=== PATIENT | female | born 1995 | race Caucasian/White ===

== ENCOUNTER 2023-09-29 14:23 | Emergency (ER) | payer BC ==
--- OUTSIDE RECORDS SUMMARY | 2023-09-29 14:27 | XMS REPORT | Continuity of Care Document ---
Author Name Unknown Address [address] [facility] [address] [place] [address] [facility] thconnect Address [address] [facility] [address] [place] [address] Care Team Providers Care Arrt Technologist Name Role Phone PCP, PATIENT DOES NOT HAVE A Primary Care Physic nehemias Unavailable Katelyn Archer Attending Clinician Unavail CELY Rivas Attending Clinician Cely Anguiano Attending Clinician [phone] Unknown, Attending Attending Clinician Unavailab jose Doctor Unassigned, [place] Attending Clinician U Shelley Berger MD Attending Clinician SHELLEY LOPEZ Attending Clinician Unavailable Only, Joseluis Db Test Attending Clinician Unavailabl e Pcp, Patient Does Not Have A Attending Clinician Provider, [facility] Attending Clinician Un available Sylwia Cedeño Attending Clinician [phone] SYLWIA GANDHI Attending Clinician Unavailable Lab, Adc Fam Pob I Attending Clinician Unavailab jose UNKNOWN, ATTENDING Attending Clinician Unavailab DALY Wilde Attending Clinician UnavailDaly Garcia Attending Clinician Payers Payer Name Policy Type Policy Number Effective Date Expirati on Date Source [facility] - OUT OF STATE [id number] 2017 00:00:00 Problems Condition Name Condition Details Condition Category Status Onset Date Resolution Date Last Treatment Date Treating Clinician Comments Source No known active problems No known active problems Disease [facility] Allergies, Adverse Reactions, Alerts Allergy Name Allergy Type Status Severity Reaction(s) Onset Date Inactive Date Treating Clinician Comments Source NO KNOWN ALLERGIE S Drug Class Active [facility] Social History Social Habit Start Date Stop Date Quantity Comments Source Exposure to SARS-CoV-2 (event) Not sure [facility] Alcohol intake 2022-04-26 00:00:00 2022-04-26 00:00:00 Lifetime non-drinker (finding) [facility] Tobacco use and exposure 2018-01-06 00:00:00 2018-01-06 00:00:00 Smokeless tobacco non-user [facility] Sex Assigned At 1995 00:00:00 1995 00:00:00 [facility] Smoking Status Start Date Stop Date Source Never smoked tobacco [facility] Medications Ordered Medication Name Filled Medication Name Start Date Stop Date Current Medication? Ordering Clinician Indication Dosage Frequency Signature (SIG) Comments Components Source predniSONE 20 mg tablet 2021-06 00:00: 00 Yes [id number] Take 2 tab daily x 7 days then 1 tab daily x 7 days taper [facility] LORYNA, 28, 3-0.02 mg per tablet 2021-06 00:00: 00 Yes TAKE 1 TABLET BY MOUTH EVERY DAY ORALLY ONCE A DAY 28 DAYS [facility] phentermine 37.5 mg tablet 2021-06 00:00: 00 Yes TAKE 1 TABLET BY MOUTH EVERY DAY FOR 30 DAYS [facility] lamoTRIgine 100 mg tablet 2021-06 00:00: 00 Yes 100mg Take 100 mg by mouth in the morning. [facility] azelastine 137 mcg (0.1 %) nasal spray 2020-06 00:00: 00 Yes [id number] 1{spray } Use 1 Altair in each nostril 2 (two) times daily. Use in each nostril as directed [facility] fluticasone propionate 50 mcg/actuati on nasal spray 2020-06 00:00: 00 Yes [id number] 1{spray } Use 1 Altair in each nostril daily. [facility] bromphenira mine-pseudo ephedrine-D M (BROMFED DM) 2-30-10 mg/5 mL syrup 2020-06 00:00: 00 Yes [id number] 5mL Take 5 mL by mouth 4 (four) times daily as needed for Congestion /Allergies . [facility] amoxicillin -clavulanat e 875-125 mg per tablet 11-03 00:00: 00 11-11 04:59 :00 No [id number] 1{tbl} Take 1 tablet by mouth 2 (two) times daily for 7 days. [facility] OMEPRAZOLE ORAL 11-02 21:02: 40 Yes Take by mouth. [facility] thyroid,por k (ARMOUR THYROID ORAL) 11-02 21:02: 40 Yes Take by mouth. [facility] OMEPRAZOLE ORAL 11-02 16:02: 40 Yes Take by mouth. [facility] methylPREDN ISolone (MEDROL, JENNIFER,) 4 mg tablets 2019-06 00:00: 00 Yes [id number] Take by mouth SEE-INSTRU CTIONS. follow package directions [facility] promethazin e-codeine 6.25-10 mg/5 mL syrup 2019-06 00:00: 00 06-08 05:59 :00 No [id number] 10mL Take 10 mL by mouth every 8 (eight) hours as needed for Cough for up to 7 days. Indication s: acute pain [facility] OMEPRAZOLE ORAL 01-07 00:55: 00 Yes Take by mouth. [facility] thyroid,por k (ARMOUR THYROID ORAL) 01-07 00:55: 00 Yes Take by mouth. [facility] cephALEXin 500 mg tablet 01-06 00:00: 00 Yes [id number] 1 tab 2x/d [facility] Vital Signs Vital Name Observation Time Observation Value Comments S ource Systolic blood pressure 2022-04-26 23:56:00 138 mm[Hg] [facility] Diastolic blood pressure 2022-04-26 23:56:00 90 mm[Hg] [facility] Heart rate 2022-04-26 23:56:00 89 /min [facility] Body temperature 2022-04-26 23:56:00 36.94 Nydia [facility] Respiratory rate 2022-04-26 23:56:00 18 /min [facility] Body height 2022-04-26 23:56:00 182.9 cm [facility] Body weight 2022-04-26 23:56:00 103.329 kg [facility] BMI 2022-04-26 23:56:00 30.90 kg/m2 [facility] Oxygen saturation in Arterial blood by Pulse oximetry 2022-04-26 23:56:00 99 /min [facility] Systolic blood pressure 2021-03-31 23:56:00 117 mm[Hg] [facility] Diastolic blood pressure 2021-03-31 23:56:00 83 mm[Hg] [facility] Heart rate 2021-03-31 23:56:00 118 /min [facility] Body temperature 2021-03-31 23:56:00 37.44 Nydia [facility] Respiratory rate 2021-03-31 23:56:00 18 /min [facility] Body weight 2021-03-31 23:56:00 100.245 kg [facility] BMI 2021-03-31 23:56:00 30.82 kg/m2 [facility] Oxygen saturation in Arterial blood by Pulse oximetry 2021-03-31 23:56:00 98 /min [facility] Systolic blood pressure 2020-11-03 21:21:00 129 mm[Hg] [facility] Diastolic blood pressure 2020-11-03 21:21:00 87 mm[Hg] [facility] Body height 2020-11-03 21:19:00 180.3 cm [facility] Body weight 2020-11-03 21:19:00 97.523 kg [facility] BMI 2020-11-03 21:19:00 29.99 kg/m2 [facility] Oxygen saturation in Arterial blood by Pulse oximetry 2020-11-03 21:19:00 98 /min [facility] Heart rate 2020-11-03 21:19:00 97 /min Un[facility] Body temperature 2020-11-03 21:19:00 36.94 Nydia [facility] Respiratory rate 2020-11-03 21:19:00 16 /min [facility] Systolic blood pressure 2020-11-02 21:00:00 130 mm[Hg] [facility] Diastolic blood pressure 2020-11-02 21:00:00 89 mm[Hg] [facility] Heart rate 2020-11-02 21:00:00 92 /min [facility] Body temperature 2020-11-02 21:00:00 37.06 Nydia [facility] Respiratory rate 2020-11-02 21:00:00 18 /min [facility] Body height 2020-11-02 21:00:00 180.3 cm [facility] Body weight 2020-11-02 21:00:00 97.523 kg [facility] BMI 2020-11-02 21:00:00 29.99 kg/m2 [facility] Oxygen saturation in Arterial blood by Pulse oximetry 2020-11-02 21:00:00 100 /min [facility] Systolic blood pressure 2020-05-31 18:03:00 120 mm[Hg] [facility] Diastolic blood pressure 2020-05-31 18:03:00 88 mm[Hg] [facility] Heart rate 2020-05-31 18:02:00 90 /min [facility] Body temperature 2020-05-31 18:02:00 36.5 Nydia [facility] Respiratory rate 2020-05-31 18:02:00 18 /min [facility] Body height 2020-05-31 18:02:00 182.9 cm [facility] Body weight 2020-05-31 18:02:00 99.791 kg [facility] BMI 2020-05-31 18:02:00 29.84 kg/m2 [facility] Oxygen saturation in Arterial blood by Pulse oximetry 2020-05-31 18:02:00 98 /min [facility] Procedures Procedure Date / Time Performed Performing Clinicia n Source ASSIGNMENT OF BENEFITS 2022-04-26 23:37:20 Docto r Unassigned, [place] [facility] POCT GRP A STREP (MOLECULAR) 2021-03-31 23:55:00 JeffreyZuri [facility] COVID-19 (MOLECULAR TESTING NUCLEIC ACID AMPLIFICATION) 2020-11-02 21:01:00 Sylwia Gandhi [facility] CONSENT/REFUSAL FOR DIAGNOSIS AND TREATMENT 2020-11-02 20:52:24 Doctor Unassigned, [place] [facility] ASSIGNMENT OF BENEFITS 2020-11-02 20:52:09 Docto r Unassigned, [place] [facility] Encounters Start Date/Time End Date/Time Encounter Type Admission Type Attending Clinicians Care Facility Care Department Encounter ID Source 2023-09-21 16:22:01 Outpatient Stacymarcell Katelyn [facility] [id number] [facility] [place] 2022-04-26 17:40:00 2022-04-26 18:07:06 Outpatient CELY BECK [facility] [id number] [facility] 2022-04-26 17:40:00 2022-04-26 18:07:06 Urgent Care Cely Waddell Unknown, Attending [facility] [id number] 350.1.13.10 [id number] [id number] [facility] 2022-04-26 00:00:00 2022-04-26 00:00:00 Orders Only Doctor Unassigned, [place] [facility] 1.284.114 350.1.13.10 4.2.7.2.686 [id number] [facility] 2021-04-23 00:00:00 2021-04-23 00:00:00 Refill Shelley Lopez [facility] [id number] 350.1.13.10 4.2.7.2.686 [id number] [facility] 2021-03-31 18:50:20 2021-03-31 19:10:20 Urgent Care John [facility] [place]?Shahrzad dempsey [facility] Building [id number] 350.1.13.10 4.2.7.2.686 [id number] [facility] 2021-03-31 19:00:00 2021-03-31 19:00:00 Outpatient R [facility] [id number] [facility] 2021-03-30 20:45:00 2021-03-30 20:45:00 Outpatient R JOHN SHELLEY [facility] [id number] [facility] 2021-03-30 19:05:37 2021-03-30 19:20:37 Laboratory Only Only, Ang Db Test John [facility] Jose Antonio?Shahrzad dempsey [facility] [id number] [id number] [id number] [id number] [facility] 2020-11-05 00:00:00 2020-11-05 00:00:00 Telephone Pcp, Patient Does Not Have A [facility] 1..840.114 350.1.13.10 4.2.7.2.686 [id number] [facility] 2020-11-03 15:53:11 2020-11-03 16:13:11 Urgent Care Provider, [facility] Oksana [facility] 1..840.114 350.1.13.10 4.2.7.2.686 [id number] [facility] 2020-11-03 16:00:00 2020-11-03 16:00:00 Outpatient R OKSANA SYLWIA [facility] [id number] [facility] 2020-11-02 15:54:08 2020-11-02 16:27:01 Urgent Care Provider, Joseluis Ur[facility] Care Oksana [facility] [id number] 350.1.13.10 4.2.7.2.686 [id number] [facility] 2020-11-02 16:00:00 2020-11-02 16:00:00 Outpatient R OKSANA SYLWIA [facility] [id number] [facility] 2020-11-02 00:00:00 2020-11-02 00:00:00 Orders Only Doctor Unassigned, [place] [facility] [id number] 350.1.13.10 4.2.7.2.686 [id number] [facility] 2020-07-03 18:29:33 2020-07-03 18:49:33 Laboratory Only Lab, Adc Fam Pob I Unknown, Attending [facility] [id number] 350.1.13.10 4.2.7.2.686 [id number] [facility] 2020-07-03 18:40:00 2020-07-03 18:40:00 Outpatient R UNKNOWN, ATTENDING [facility] [id number] [facility] 2020-05-31 11:52:15 2020-05-31 12:33:52 Urgent Care Provider, Joseluis [facility] Oksana [facility] [id number] 350.1.13.10 4.2.7.2.686 [id number] [facility] 2020-05-31 11:40:00 2020-05-31 11:40:00 Outpatient R OKSANA [facility] [id number] [facility] 2020-05-29 19:20:00 2020-05-29 19:20:00 Outpatient R DALY GARRIDO [facility] [id number] [facility] 2020-05-29 18:25:02 2020-05-29 18:45:02 Laboratory Only Lab, Adc Fam Alfonzob Daly Mack [facility] [id number] 350.1.13.10 4.2.7.2.686 [id number] [facility] 2020-05-29 00:00:00 2020-05-29 00:00:00 Letter (Out) Doctor Unassigned, [place] [facility] [id number] 350.1.13.10 4.2.7.2.686 [id number] [facility] Results Test Description Test Time Test Comments Results Result Co mments Source [facility]2020-11-03 10:25:09* Test Item Value Reference Range Interpretation Comme nts SARS-CoV-2 NAAT (test code = 86895-4) Not Detected Not Detected TAYLOR (test code = TAYLOR) [employer] SARS-CoV-2 Assay is a nucleic acid amplification test intended for the qualitative detection of RNA from SARS-CoV-2 from nasopharyngeal (RESOLUTION ANALYST) specimens. ?It is used under Emergency Use Authorization (EUA) by FDA. A positive result is indicative of the presence of SARS-CoV-2 RNA. ?Clinical correlation with patient history and other diagnostic information is necessary to determine patient infection status. A negative (Not Detected) result does not preclude SARS-CoV-2 infection. ?Clinical correlation with patient history and other diagnostic information should be used in patient management decisions. Invalid: Unable to generate a valid test result on this specimen. ?Please submit a new specimen for repeat testing if clinically indicated. Lab Interpretation (test code = 60255-8) Normal [facility]
--- NOTE | 2023-09-29 15:37 | RAD REPORT ---
EXAM DESCRIPTION: US - Transvaginal OB - 09/29/2023 3:20 pm CLINICAL HISTORY: with pelvic pain COMPARISON: None FINDINGS: The uterus measures 7 x 4 x 5 centimeters. A normal appearing gestational sac is present within the endometrium. Within this is a yolk sac and pole with a crown-rump length 2.3 millime ters. Cardiac activity not visualized Left ovary normal in size and echotexture. Right ovary not seen secondary to overlying bowel gas. The right and left adnexa are unremarkable No significant free fluid is seen. IMPRESSION: Single intrauterine with an estimated gestational age 5 weeks 5 days ELIZA 05/26. This may represent a viable in which the heart beat not detected due to the early gestation al age. It is recommended that the patient have a followup endovaginal sonogram in 1 week for re-eval uation
[2023-09-29 15:48] LABS: Absolute Basophils 0.1 K/uL (0-0.5); Absolute Eosinophils 0.2 K/uL (0-0.5); Absolute Lymphocytes (CBC) 2.3 K/uL (0.7-4.9); Absolute Monocytes 0.8 K/uL (0.1-1.3); Absolute Neutrophil 4.3 K/uL (1.8-8.0); Basophils % 0.9 % (0-1.3); Eosinophils % 2.4 % (0-4.4); Hemoglobin 14.2 g/dL (12.0-15.0); Lymphocytes % 29.9 % (15.3-44.8); MCH 31.3 pg (27.0-35.0); MCHC 33.8 g/dL (32.0-36.0); MCV 92.7 fL (80-100); MPV 8.9 fL (7.6-11.3); Monocytes % 10.7 % (3.3-12.3); Neutrophils % 56.1 % (41.7-73.7); Nucleated Red Blood Cells % 0.1 % (0-0); Platelets 259 thou/uL (152-406); RBC Red Blood Cell Count 4.54 M/uL (3.86-4.86); Red Cell Distribution Width 13.1 % (12.1-15.2)
[2023-09-29 15:52] LABS: Specific Gravity 1.017 (1.005-1.030)
[2023-09-29 16:21] LABS: Anion Gap 2.3 mEq/L (5.0-15.0); Potassium 3.3 mEq/L (3.5-5.1)
--- NOTE | 2023-09-29 16:45 | ER ---
Nurse's Notes [facility] Name: Lexi Raymundo Age: 28 yrs Sex: Female : 1995 Arrival Date: 09/29/2023 Time: 14:23 Bed 11 Private MD: Diagnosis: Encounter for supervision of other normal , first trimester Presentation: 09/28 14:36 Chief complaint: Patient states: G1, P0. Abdominal cramping for 4 weeks; around 4 weeks ll1 . No bleeding. LMP 08/23/23. Coronavirus screen: Client denies travel out of the [place] in the last 14 days. At this time, the client does not indicate any symptoms associated with coronavirus-19. Ebola Screen: Patient denies travel to an Ebola-affected area in the 21 days before illness onset. Initial Sepsis Screen: Does the patient meet any 2 criteria? No. Patient's initial sepsis screen is negative. Does the patient have a suspected source of infection? No. Patient's initial sepsis screen is negative. Risk Assessment: Do you want to hurt yourself or someone else? Patient reports no desire to harm self or others. Onset of symptoms was August 29, 2023. 14:36 Method Of Arrival: Ambulatory ll1 14:36 Acuity: RUDY 3 ll1 Triage Assessment: 14:38 General: Appears in no apparent distress. Behavior is calm, cooperative, appropriate ll1 for age. Pain: Complains of pain in pelvis Pain currently is 1 out of 10 on a pain scale. Quality of pain is described as crampy. GI: Reports cramping. : Reports cramping. 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 - Infectious Disease History:: Denies. - Social history:: Smoking status: Patient denies any tobacco usage or history of. Screenin:51 [facility] ED Fall Risk Assessment (Adult) History of falling in the last 3 months, bp including since admission No falls in past 3 months (0 pts). Abuse screen: Denies threats or abuse. Denies injuries from another. Nutritional screening: No deficits noted. Tuberculosis screening: No symptoms or risk factors identified. Assessment: 14:45 General: SEE TRIAGE NOTE. bp 16:51 : No deficits noted. Denies vaginal bleeding. bp 16:53 GI: Bowel sounds present X 4 quads. Abd is soft and non tender. bp Vital Signs: 14:36 BP 153 / 86; Pulse 103; Resp 16; Temp 97.1; Pulse Ox 100% ; Weight 106.59 kg; Height 6 ll1 ft. 0 in. ; Pain 1/10; 16:52 BP 143 / 79; Pulse 91; Resp 16; Pulse Ox 100% ; bp 14:36 Body Mass Index 31.87 (106.59 kg, 182.88 cm) ll1 14:36 Pain Scale: Adult ll1 ED Course: 14:26 Patient arrived in ED. mr 14:31 [facility] Becerra [facility]C [facility] sb4 14:31 Ernst Whitten MD is Attending Physician. sb4 14:37 Triage completed. ll1 14:38 Arm band placed on Patient placed in an exam room, on a stretcher. ll1 14:46 Riaz Boss, RN is Primary Nurse. bp 14:55 US Transvaginal Ob Sent. bp 15:18 US Transvaginal Ob In Process Unspecified. EDMS 15:43 Initial lab(s) drawn, by fl, sent to lab. Inserted saline lock: 22 gauge in right jg11 antecubital area, using aseptic technique. Blood collected. 15:43 Basic Metabolic Panel Sent. jg11 15:43 CBC with Diff Sent. jg11 15:43 Test, Urine Sent. jg11 15:43 Quantitative Hcg Sent. jg11 16:51 Patient has correct armband on for positive identification. Provided Education on: N/A. bp 16:51 No provider procedures requiring assistance completed. IV discontinued, intact, bp bleeding controlled, No redness/swelling at site. Pressure dressing applied. Administered Medications: No medications were administered Medication: 16:51 VIS not applicable for this client. bp Outcome: 16:45 Discharge ordered by . sb4 16:51 Discharged to home ambulatory, with family, bp 16:51 Condition: stable 16:51 Discharge instructions given to patient, Instructed on discharge instructions, follow up and referral plans. Demonstrated understanding of instructions, follow-up care, 16:53 Patient left the ED. bp Signatures: Dispatcher [employer] EDLA Lanie Mendiola, Jeramy Deshpande mr Riaz Boss, RN RN bp Aleksey Wright RN RN ll1 Luana Becerra PAMari PAMari [email or web address] Gabriele Thompson [email or web address]
--- NOTE | 2023-09-29 16:45 | EDPHYS ---
Physician Documentation [facility] Name: Lexi Raymundo Age: 28 yrs Sex: Female : 1995 Arrival Date: 09/29/2023 Time: 14:23 Bed 11 Private MD: ED Physician Ernst Whitten HPI: 09/28 14:40 This 28 yrs old Female presents to ER via Ambulatory with complaints of 4 wks , sb4 Abdominal Cramping. 14:40 The patient presents to the emergency department with abdominal pain, of the suprapubic sb4 area. The estimated gestational age is 4 weeks. course: care: none, Leakage of Fluid: none appreciated, Ultrasound: the patient has not had an ultrasound, Risk/complications: no obvious risks or complications are appreciated. Previous pregnancies: the patient has never been . Associated signs and symptoms: Pertinent negatives: ruptured membranes, vaginal bleeding. The patient has not experienced similar symptoms in the past. The patient has not recently seen a physician. 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 - Infectious Disease History:: Denies. - Social history:: Smoking status: Patient denies any tobacco usage or history of. ROS: 14:40 Constitutional: Negative for fever, chills, and weight loss, sb4 14:40 : Positive for as per HPI, 14:40 All other systems are negative, Exam: 14:40 Constitutional: This is a well developed, well nourished patient who is awake, alert, sb4 and in no acute distress. Head/Face: Normocephalic, atraumatic. Eyes: Extra-ocular motions intact. Periorbital areas with no swelling, redness, or edema. ENT: Mucous membranes moist. Skin: Warm, dry with normal turgor. Normal color with no rashes, no lesions, and no evidence of cellulitis. MS/ Extremity: Pulses equal, no cyanosis. Neurovascular intact. Full, normal range of motion. Neuro: Awake and alert, GCS 15, oriented to person, place, time, and situation. Motor strength 5/5 in all extremities. Sensory grossly intact. Vital Signs: 14:36 BP 153 / 86; Pulse 103; Resp 16; Temp 97.1; Pulse Ox 100% ; Weight 106.59 kg; Height 6 ll1 ft. 0 in. ; Pain 1/10; 16:52 BP 143 / 79; Pulse 91; Resp 16; Pulse Ox 100% ; bp 14:36 Body Mass Index 31.87 (106.59 kg, 182.88 cm) ll1 14:36 Pain Scale: Adult ll1 MDM: 14:35 Patient medically screened. sb4 14:40 Differential diagnosis:. sb4 16:43 Data reviewed: vital signs, nurses notes, lab test result(s), radiologic studies, and sb4 as a result, I will discharge patient. Counseling: I had a detailed discussion with the patient and/or guardian regarding the historical points, exam findings, and any diagnostic results supporting the discharge/admit diagnosis, lab results, radiology results, the need for outpatient follow up, an OB/Gyne specialist, to return to the emergency department if symptoms worsen or persist or if there are any questions or concerns that arise at home. 09/28 14:38 Order name: Basic Metabolic Panel; Complete Time: 16:30 sb4 09/28 14:38 Order name: CBC with Diff; Complete Time: 15:51 sb4 09/28 14:38 Order name: Test, Urine; Complete Time: 15:58 sb4 09/28 14:38 Order name: Quantitative Hcg; Complete Time: 16:30 sb4 09/28 14:38 Order name: US Transvaginal Ob; Complete Time: 15:39 sb4 09/28 14:38 Order name: IV Saline Lock; Complete Time: 15:43 sb4 09/28 14:38 Order name: Labs collected and sent; Complete Time: 15:43 sb4 Administered Medications: No medications were administered Disposition Summary: 09/29/23 16:45 Discharge Ordered Notes: Location: Home sb4 Problem: new sb4 Symptoms: are unchanged sb4 Condition: Stable sb4 Diagnosis - Encounter for supervision of other normal , first trimester sb4 Followup: sb4 - With: Private Physician - When: 1 week - Reason: Recheck today's complaints, Re-evaluation by your physician Discharge Instructions: - Discharge Summary Sheet sb4 - First Trimester of , [id number] sb4 - Abdominal Pain During , [id number]-Flzh sb4 Forms: - Thank You Letter sb4 - Patient Portal Instructions sb4 - Leadership Thank You Letter sb4 Signatures: Dispatcher [employer] Aleksey Erickson RN RN ll1 Luana Becerra PADulce MariaC PAMari sb4 Corrections: (The following items were deleted from the chart) 14:38 14:38 BASIC METABOLIC PANEL+C.LAB.BRZ ordered. EDMS EDMS 14:38 14:38 CBC+H.LAB.BRZ ordered. EDMS EDMS 14:38 14:38 Test, Urine+UC.LAB.BRZ ordered. EDMS EDMS 14:38 14:38 QUANTITATIVE HCG+C.LAB.BRZ ordered. EDMS EDMS
[2023-09-29 17:17] VITALS: BP 143/79; TEMP 97.1; O2SAT 100
== END 2023-09-29 16:53 | disposition home or self-care (01) ==
LOC: ER 14:23
DX: O26.891 Other specified pregnancy related conditions, first trimester (principal); Z3A.01 Less than 8 weeks gestation of pregnancy
CPT/HCPCS: 36415; 76817; 80048; 81025; 84702; 85025; 99283